=== PATIENT | female | born 1970 | race Caucasian/White ===

== ENCOUNTER → 2017-12-21 | Outpatient (CLI) | payer OTHER ==
[~2017-12-21] MED LIST: ASCO10003 PO; CHOL1TAB42 PO; LEVO100T PO; LYSI500C2 PO; MULT-222 PO
--- NOTE | 2017-12-21 14:51 | DIAGNOSTIC IMAGING REPORT ---
VENOUS DOPPLER LWR EXT BILA CLINICAL HISTORY: 47 years-old Female presenting with R73.9 R60.9 M77.40 M72.2. TECHNIQUE: Real-time grayscale and color and spectral Doppler ultrasound imaging of the veins of the bilateral lower extremities was performed. Compression and augmentation were also utilized. COMPARISON: None. FINDINGS: Right: Common femoral vein: Patent. Greater saphenous vein: Patent. Deep femoral vein: Patent. Femoral vein: Patent. Popliteal vein: Patent. Calf veins: Patent. Left: Common femoral vein: Patent. Greater saphenous vein: Patent. Deep femoral vein: Patent. Femoral vein: Patent. Popliteal vein: Filling defect consistent with thrombus in the left popliteal vein along a length of approximately 1.3 cm. This appears eccentric and nonocclusive. Calf veins: Limited questionable filling defects in the posterior tibial and peroneal veins. Other: None. IMPRESSION: 1. Deep venous thrombosis in the left popliteal vein, which involves a limited length of the vein and is eccentric and nonocclusive. This could suggest chronic thrombus. Questionable limited thrombus in the left calf veins. 2. No deep venous thrombosis in the right lower extremity. Electronically signed by: Nathaniel Dye M.D. 12/21/2017 2:50 PM Dictated Date/Time: 12/21/2017 2:48 PM
== END | disposition home or self-care (01) ==
LOC: C.ULTRBC 14:13
PROVIDERS: ATTEND Internal Medicine Geriatric Medicine
DX: I82.402 Acute embolism and thrombosis of unspecified deep veins of left lower extremity (principal); R60.9 Edema, unspecified; R73.9 Hyperglycemia, unspecified; M77.40 Metatarsalgia, unspecified foot; M72.2 Plantar fascial fibromatosis

== ENCOUNTER → 2018-03-19 | Outpatient (CLI) | payer OTHER ==
--- NOTE | 2018-03-20 06:05 | PAP/PSG TECHNICIAN REPORT ---
[facility] [employer] Machine Operator Polysomnogram Report Study name: None Report date: 03/20/2018 Study date: 03/19/2018 Referring Physician: LUIS MADDOX M.D. Name: HENNY ROGEL Interpreting Physician: Yang Najera M.D. Date of : 1970 [employer] Machine Operator: Bess Orellana RPSGT. Sex: Female Age: 47 Study Type: PSG Weight: 235.8 lbs Height: 47 years, Height 5' 2" BMI: 43.12 Medications: SYNTHROID 100 MG, ELIQUIS 5 MG, MULTI VIT, VIT B-12, VIT C, VIT B6, VIT D Patient History 47 yr-old female here for a new CPAP treatment study. She was found to be positive for LASHONDA via a home sleep study. Her AHI was 9.4. She chose a Mirage FX Soft Edge nasal mask size small from [employer]. The test was started on room air and 4 CMH2O. ETCO2 testing was not utilized during this study. Room 1 Parameters Monitored NPSG: E1-M2, E2-M1, Fp1-M2, Fp2-M1, F3-M2, F4-M2, F4-M1, C3-M2, C4-M2, C4-M1, O1-M2, O2-M2, O2-M1, T3-M2, T4-M1, P3-M2, P4-M1, CHIN1, CHIN2, HR, EKG, Legs, PFLOW, SNOR, FLOW, CFLOW, Tidal Volume, THOR, ABDO, SpO2, PLTH, CPRESS, ETCO2 Wave, ETCO2, pH Sleep Architecture Sleep Stages Time at Lights Off 10:59:18 PM STAGES Time (min.) TST (%) Time at Lights On 5:30:18 AM Wake 24.5 -- Total Recording Time (TRT) 391.00 min. N1 12.5 3 Total Sleep Period (TSP) 372.0 min. N2 231.0 63 Total Sleep Time (TST) 366.5min. N3 45.0 12 Awake Time 24.5 min. REM 78.0 21 Wake after Sleep Onset 5.5 min. Sleep Efficiency (SE) 94 % Sleep Onset Latency (JEANNE) 19.0 min. Number of Stage 1 Shifts None Awakenings 6 Stage Changes 47 Number of REM periods 3 REM 78.0 21 REM Latency 58.5 min. NREM 288.5 79 Body Position Analysis Supine Right Left Side Prone Vertical Total Sleep Time (min.) 99.4 270.0 0.0 270.00 0.0 0.0 Total Sleep Time (%) 26% 74% 0% 74 0% N/A% Total Sleep Time REM (min.) 29.0 49.0 0.0 None 0.0 0.0 Total Sleep Time NREM (min.) 67.5 221.0 0.0 None 0.0 0.0 Intermittent Wake (min.) 2.9 20.5 1.1 None 0.0 0.0 Total Sleep Period (%) 26% None None None None None Arousals Myoclonus (PLM) * Events Count Index Events Count Index Spontaneous 10 2 Events Awake (PLMW) 33 80.8 Respiratory 0 0.0 Events Asleep w/ Arousal (PLMA) 8 1.3 PLM 8 1 Events Asleep w/o Arousal (PLMS) 30 4.9 Snoring 1 0 Total Asleep 38 6.2 Total 19 3 Total 71 11 Respiratory Analysis * CA OA MA CH H RERA Total Count 2 0 0 0 10 0 12 Index 0.3 0.0 0.0 0 1.6 0 2.0 Mean Duration 12.5 0.0 0.0 0.00 15.5 0.0 15.0 Longest Duration 12.6 0.0 0.0 0.00 0.0 0.0 17.6 Respiratory Event Summary Total Supine ~Supine Right Left Prone REM NREM Apneas Count 2 2 0 0 N/A N/A 0 2 Index 0.3 1 0 0.0 N/A N/A 0 0 Hypopneas (4% Desat) Count 10 5 5 5 N/A N/A 6 4 Index 1.6 3.1 1 1.1 N/A N/A 4.6 0.8 Apneas & All Hypopneas Count 12 7 5 5 N/A N/A 6 6 Index 2.0 4 1 1 N/A N/A 4.6 1.2 Respiratory Events (Counter Stacker+All Hyp+RERA) Count 12 7 5 5 N/A N/A 6 6 Index 2.0 4 1 1.1 N/A N/A 4.6 1.2 Respiratory Related Arousal Count 0 7 0 0 N/A N/A 0 0 Index 0.0 0 0 0 N/A N/A 0 0 Snoring Analysis Supine Right Left Prone REM NREM Total Snore duration 0.6 min Snores count 0 26 N/A N/A 8 18 26 Snore mean duration 1.3 Sec Snores index 0 6 N/A N/A 6.2 3.7 4.3 TST with snoring (%) 0.2% Desaturation Event Summary: Minimum %SpO2 Event Count Mean/Min/Max Duration(sec.) Desaturation Index % Time In Bed > 90 21 23.4 / 8.5 / 50.3 3.6 88.5 86 - 90 5 11.2 / 7.3 / 17.8 6.7 11.4 81 - 85 0 N/A 0.0 0.0 76 - 80 0 N/A 0.0 0.0 71 - 75 0 N/A 0.0 0.0 66 - 70 0 N/A 0.0 0.0 61 - 65 0 N/A 0.0 0.0 56 - 60 0 N/A 0.0 0.0 51 - 55 0 N/A 0.0 0.0 < 50 0 N/A 0.0 0.0 Total REM NREM Awake <50% 0.0 min. 0.0 min. 0.0 min. 0.0 min. 51 - 60% 0.0 min. 0.0 min. 0.0 min. 0.0 min. 61 - 70% 0.0 min. 0.0 min. 0.0 min. 0.0 min. 71 - 80% 0.0 min. 0.0 min. 0.0 min. 0.0 min. 81 - 90% 44.7 min. 17.8 min. 26.9 min. 0.0 min. 91 - 100% 345.5 min. 60.2 min. 261.6 min. 23.8 min. Average 93 92 93 95 Minimum SpO2 85 85 89 91 Desaturation Event Index 3.5 7.7 2.3 4.9 # Desat. Events below 89% 7 7 N/A N/A Time(%) with Saturation below 89% 0.4 0.4 0.0 0.0 Time(min.) with Saturation below 89% 1.7 1.7 0.0 0.0 Time (mins) REM (mins) NREM (mins) % of TST SpO2 Below 90% 10 9 N1 2.1 SpO2 Below 88% 1 0 0 0 Heart Rate Analysis Min (bpm) Max (bpm) Average (bpm) Awake 63 127 73 NREM 58 90 70 REM 59 80 70 Overall 58 90 70 Supplemental O2 Values Minimum O2 level: None Value Start Time End Time [employer] Operator Comments Ms. Rogel slept in the right and supine positions. No cardiac arrhythmias or PLMs noted. No bruxism noted. CPAP was initiated at +4 CMH2O and up-titrated to a level of +6 CMH2O, Cflex 2 which nearly eliminated all respiratory events and snoring. A Mirage FX Soft edge nasal mask size small from [employer] was used during titration. She did not wake up to use the restroom during the night. Ms. Rogel stated that she slept well. The final report will be interpreted and signed by a sleep physician. The completed physician report will then be placed in the patient medical record. CPAP REPORT Therapy Detail Time / Page # Comment CPAP 4 cm H2O Nasal Mask Flex Pressure Relief Humidifier on 10:56:33 PM / pg. 209 CPAP 5 cm H2O Nasal Mask Flex Pressure Relief Humidifier on 1:01:32 AM / pg. 459 INCREASED FOR A FEW HYPOPNEAS CPAP 6 cm H2O Nasal Mask Flex Pressure Relief Humidifier on 4:25:13 AM / pg. 866 INCREASED FOR HYPOPNEAS IN REM Therapy Event: Therapy (cm H20) 4 5 6 Total Time at Pressure (min.) 122.2 203.7 65.1 TST at Pressure (min.) 100.7 200.7 65.1 # Periods 1 1 1 Sleep Onset (min.) 19.0 0.0 0.0 REM Onset (min.) 77.5 75.3 0.0 Sleep Efficiency % 82 98 100 Wakefulness (%) 17.6 1.5 0.0 Wakefulness (min.) 21.5 3.0 0.0 NREM 1 (%) 5.7 2.2 1.5 NREM 1 (min.) 7.0 4.5 1.0 NREM 2 (%) 41.9 67.6 64.5 NREM 2 (min.) 51.2 137.8 42.0 NREM 3 (%) 17.2 10.6 3.8 NREM 3 (min.) 21.0 21.5 2.5 REM (%) 17.6 18.1 30.1 REM (min.) 21.5 36.9 19.6 # Arousals 5 12 2 Arousal Index 3.0 3.6 1.8 # Snore 3 23 0 Snore Index 1.8 6.9 0.0 AHI 2.4 1.5 2.8 AHI Supine N/A 7.6 2.8 AHI Non-Supine 2.4 0.4 N/A NREM AHI 1.5 0.7 2.6 REM AHI 5.6 4.9 3.1 RDI 2.4 1.5 2.8 # Obstructive 0 0 0 # Central Ap 0 0 2 # Mixed 0 0 0 # Hypopneas 4 5 1 RERAS 0 0 0 Total Respiratory Events 4 5 3 Time Below SpO2 89.00% (min.) 0.5 1.0 0.2 Mean NREM SpO2 (%) 92 94 91 Mean REM SpO2 (%) 91 93 91 Mean Sleep SpO2 (%) 92 94 91 Min NREM SpO2 (%) 89 89 89 Min REM SpO2 (%) 86 85 88 Position Supine (min.) 0.0 31.4 65.1 Position Non-supine (min.) 100.7 169.3 0.0 LM Index Sleep 3.6 8.7 2.8 LM Index NREM 4.5 9.5 0.0 LM Index REM 0.0 4.9 9.2 Mean Heart Rate (bpm) 71 70 68 Min Heart Rate (bpm) 59 61 58
--- NOTE | 2018-03-26 19:52 | POLYSOMNOGRAPH REPORT ---
CLINICAL DATA: A 47-year-old female with a BMI of 43.12, referred by Dr. Geronimo Acosta for a CPAP titration study. She had home sleep apnea test, which was positive for mild sleep apnea. SLEEP ARCHITECTURE: Total sleep period was 373 minutes. Total sleep time was 366.5 minutes divided between 288.5 minutes of non-REM sleep and 78 minutes of REM sleep. Sleep latency was 19 minutes. REM latency was 58.5 minutes. Sleep efficiency was 94%. Wake after sleep onset was 5.5 minutes. Sleep consisted of stage N1 3%, stage N2 63%, stage N3 12%, and REM 21%. AROUSAL DATA: 19 arousals were recorded for an index of 3 per hour. PLM DATA: 38 limb movements during sleep were noted for an index of 6.2 per hour with arousal index of 1.3 per hour. RESPIRATORY DATA: The AHI was 2. There were 2 central apneic episodes. The longest duration of apnea was 12.6 seconds. There were 12 hypopneic episodes with the mean duration of 15.5 seconds. OXIMETRY DATA: No significant hypoxemia was seen. Oxygen sandra was 85% during REM. Mean saturation was 93%. Time below 89% was 1.7 minutes. Time below 88% was 1 minute. EKG: Heart rates ranged from 58 to 90 beats per minute. [employer]AT RENTAL CLERK'S COMMENTS AND TREATMENT SUMMARY: The patient slept in the right and supine positions. A Mirage FX soft edge nasal mask size small from [employer] was used. The patient was titrated up to a final pressure setting of 6 cm water pressure, C-Flex setting of 2 wit correction of LASHONDA. IMPRESSION: Mild sleep apnea/hypopnea corrected with CPAP of 6 cm of water pressure, C-Flex setting #2. RECOMMENDATIONS: Patient should be started on above noted treatment regimen and seen back in followup within 90 days and document of compliance. [facility]
== END | disposition home or self-care (01) ==
LOC: C.NEUR 21:00
PROVIDERS: ATTEND Internal Medicine Geriatric Medicine
DX: G47.33 Obstructive sleep apnea (adult) (pediatric) (principal)

== ENCOUNTER → 2018-04-11 | Outpatient (CLI) | payer OTHER ==
--- NOTE | 2018-04-12 13:39 | MAMMOGRAPHY REPORT ---
BILATERAL DIGITAL SCREENING MAMMOGRAM TOMOSYNTHESIS WITH CAD: 04/11/2018 CLINICAL HISTORY: Routine screening. TECHNIQUE: The study was acquired using full field digital technology and interpreted from soft copy. Breast tomosynthesis in addition to standard 2D mammography was performed. Current study was also ev aluated with a Computer Aided Detection (CAD) system. COMPARISON: Comparison is made to exam dated: 01/22/2015 mammogram - [facility]. BREAST COMPOSITION: There are scattered areas of fibroglandular density in both breasts. FINDINGS: There is a stable benign lobulated 14 mm mass with associated coarsening calcification in t he left lateral breast, most likely a degenerating fibroadenoma. Stable asymmetry in the slightly la teral anterior right breast on the CC view. No suspicious mass, architectural distortion or cluster o f microcalcifications is seen. IMPRESSION: ACR BI-RADS CATEGORY 1: NEGATIVE There is no mammographic evidence of malignancy. A 1 year screening mammogram is recommended.( [id number]) The patient will receive written notification of the results. Some breast cancers are not detected with mammography. A negative mammographic report should not bernardo y biopsy if a clinically suggestive mass is present. Page Craft M.D. ay/:04/11/2018 15:58:12 Crm Marketing Specialist: RT Sidra(Jerome)(M), [facility] letter sent: Normal 1/2 BI-RADS Code: ACR BI-RADS Category 1: Negative
== END | disposition home or self-care (01) ==
LOC: C.MAMM 08:23
PROVIDERS: ATTEND Obstetrics & Gynecology
DX: Z12.31 Encounter for screening mammogram for malignant neoplasm of breast (principal)